=== PATIENT | female | born 1975 | race Caucasian/White ===

== ENCOUNTER 2023-10-16 12:44 | Emergency (ER) | payer OTHER, SELFPAY ==
[2023-10-16 12:59] VITALS: BP 138/78; PULSE 83; RESP 18; TEMP 36.7; O2SAT 97
--- NOTE | 2023-10-16 12:59 | ED.GENADULT ---
HPI - General Adult General Chief complaint: Extremity Injury, Upper Stated complaint: Painful swollen RT index finger Time Seen by Provider: 10/16/23 12:59 Source: patient and RN notes reviewed Mode of arrival: ambulatory Limitations: no limitations History of Present Illness HPI narrative: 48-year-old female presents to the [facility] with the painful nail bed with some minor swelling. Reports drainage. Area to the right index finger. Onset (ago): day(s) (2) Related Data Home Medications Medication Instructions Recorded Confirmed atorvastatin 20 mg tablet 20 mg DIRECTED 10/16/23 10/16/23 bupropion HCl 150 mg tablet,12 hr 150 mg PO DIRECTED 10/16/23 10/16/23 sustained-release fluoxetine 20 mg capsule 20 mg DIRECTED 10/16/23 10/16/23 fluoxetine 40 mg capsule 40 mg DIRECTED 10/16/23 10/16/23 nystatin 100,000 unit/gram topical 1 applic topical DIRECTED 10/16/23 10/16/23 powder ([facility]) omeprazole 40 mg capsule,delayed 40 mg DIRECTED 10/16/23 10/16/23 release ropinirole 1 mg tablet 1 mg DIRECTED 10/16/23 10/16/23 Allergies Allergy/AdvReac Type Severity Reaction Status Date / Time amoxicillin Allergy Intermediate Hives / Verified 12/08/17 13:09 [place] cefaclor Allergy Intermediate Hives / Verified 12/08/17 13:09 [place] codeine Allergy Intermediate Hives Verified 10/16/23 13:10 sulfamethoxazole Allergy Intermediate Hives / Verified 12/08/17 13:09 [place] trimethoprim Allergy Intermediate Hives / Verified 12/08/17 13:09 [place] nitrofurantoin Allergy Mild Hyperactive Verified 12/08/17 13:09 morphine AdvReac Mild Itching Verified 10/16/23 13:10 Review of Systems Review of Systems: All systems reviewed & are unremarkable except as noted in HPI and below Constitutional: Constitutional: Reports no additional constitutional complaints Eyes: Eyes: Reports no additional eye complaints ENT: Reports system reviewed and no additional complaints, except as documented Cardiovascular: Cardiovascular: Reports no additional cardiovascular complaints, Denies chest pain and Denies dyspnea Respiratory: Respiratory: Reports no additional respiratory complaints, Denies chest congestion, Denies cough and Denies dyspnea Gastrointestinal: Gastrointestinal: Reports no additional gastrointestinal complaints, Denies abdominal pain, Denies nausea and Denies vomiting Musculoskeletal: Musculoskeletal: Reports no additional musculoskeletal complaints Integumentary/Breasts: Skin/Breast: Reports as per HPI Neurologic: Reports system reviewed and no additional complaints, except as documented Psychiatric: Psychiatric: Reports no additional psychiatric complaints Allergic/Immunologic: Allergic/Immunologic: Reports no additional allergic/immunologic complaints [facility] Past Medical History Medical History Acid reflux Anxiety and depression High cholesterol Comments At the time of my signature, I reviewed and agree with the nursing past medical, surgical, social, and family history. There is no relevant family history pertinent to the patient complaint. Exam Const: General: cooperative, healthy appearing, comfortable, no acute distress, well developed, alert and well nourished Nutritional Appearance: well nourished and obese Orientation/consciousness: patient oriented x3 Limitations: no limitations HENMT: Head: normal to inspection Ears: hearing grossly normal bilaterally and external ears normal Face/Nose/Sinus: Normal external nose present, Normal nares present, Normal nasal mucous membranes and turbinates present, normal facial exam and face symmetric Face and sinus: normal facial exam and face symmetric Eyes: General: appearance normal, both eyes and all related structures Alignment and Position: alignment normal Periorbital: periorbital findings normal Neck: Neck: normal visual inspection, full ROM, no lymphadenopathy and n
== END 2023-10-16 13:22 | disposition home or self-care (01) ==
PROVIDERS: Emergency Provider Nurse Practitioner; PCP Family Medicine
DX: L03.011 Cellulitis of right finger (principal); K21.9 Gastro-esophageal reflux disease without esophagitis; E78.00 Pure hypercholesterolemia, unspecified; F41.9 Anxiety disorder, unspecified; F32.A Depression, unspecified
CPT/HCPCS: 99213; G0463